=== PATIENT | female | born 1990 | race Caucasian/White ===

== ENCOUNTER 2016-12-16 03:59 | Inpatient (IN) | payer BC ==
[~2016-12-16] VITALS: Ht 170.2 cm; Wt 73.0 kg
[2016-12-16 04:22] LABS: HEMOGLOBIN 15.2 gm/dl (12.3-15.3); RED BLOOD COUNT 4.92 M/UL (4.00-5.10); WHITE BLOOD COUNT 7.3 K/UL (4.5-11.0)
[2016-12-16 04:43] LABS: BUN/CREATININE RATIO 18 (0-10)
[2016-12-16] MEDS ORDERED: LAMICTAL XR200 MG PO (07:37)
[2016-12-16] MEDS ORDERED: KLONOPIN TAB 00.5 MG PO (07:37)
[2016-12-16] MEDS ORDERED: NEURONTIN800 MG PO (07:37)
[2016-12-16] MEDS ORDERED: AMPHETAMINE SAL10 MG PO (07:38)
[2016-12-16] MEDS ORDERED: PROZAC20 MG PO (07:38)
[2016-12-16] MEDS ORDERED: RESTORIL 30 MG30 MG PO (07:39)
[2016-12-16 16:35] LABS: BUN/CREATININE RATIO 13 (0-10)
[2016-12-17 03:52] LABS: RED BLOOD COUNT 3.73 M/UL (4.00-5.10); WHITE BLOOD COUNT 5.2 K/UL (4.5-11.0)
[2016-12-17 03:54] LABS: HEMOGLOBIN 11.6 gm/dl (12.3-15.3)
[2016-12-17 04:08] LABS: BUN/CREATININE RATIO 10 (0-10)
--- NOTE | 2016-12-17 16:04 | NUR ---
SPOKE WITH CAITIE FROM POISON CONTROL. STATUS UPDATE AND CURRENT VS GIVEN
== END 2016-12-17 18:30 | disposition home or self-care (01) | DRG 917 ==
LOC: ER1 03:59 → ZEROF 05:25 → CCU 05:25
PROVIDERS: Emergency Medicine; Internal Medicine; ADMIT Internal Medicine
DX: T42.4X1A Poisoning by benzodiazepines, accidental (unintentional), initial encounter (principal); G92 Toxic encephalopathy; J96.01 Acute respiratory failure with hypoxia; T42.6X1A Poisoning by other antiepileptic and sedative-hypnotic drugs, accidental (unintentional), initial encounter; T43.221A Poisoning by selective serotonin reuptake inhibitors, accidental (unintentional), initial encounter; R53.83 Other fatigue; F31.9 Bipolar disorder, unspecified; F90.9 Attention-deficit hyperactivity disorder, unspecified type; G47.00 Insomnia, unspecified; F51.8 Other sleep disorders not due to a substance or known physiological condition; I45.81 Long QT syndrome; Z79.899 Other long term (current) drug therapy; Z88.8 Allergy status to other drugs, medicaments and biological substances
CPT/HCPCS: 36415; 51701; 70450; 80053; 80307; 81001; 82962; 83690; 83735; 84703; 85025; 87086; 93005; 96374; 99285; C9113; G0480; J1650; J7030

== ENCOUNTER → 2016-12-28 | Outpatient (CLI) | payer OTHER ==
[~2016-12-28] MED LIST: AMPHETAMINE SAL10 MG PO; KLONOPIN TAB 00.5 MG PO; LAMICTAL XR200 MG PO; NEURONTIN800 MG PO; PROZAC20 MG PO; RESTORIL 30 MG30 MG PO
== END ==
LOC: LAB 00:48
DX: Z02.1 Encounter for pre-employment examination (principal)
CPT/HCPCS: 80074; 86706; 87390